=== PATIENT | female | born 1955 | race Caucasian/White ===

== ENCOUNTER 2020-07-31 10:26 | Emergency (ER) | payer MEDICARE, OTHER ==
[2020-07-31 10:32] VITALS: BMI 26.9
[2020-07-31] MEDS ORDERED: TETANUS AND DIPHTHERIA TOXOID 0.5 ML DISP.SYRIN IM ONE (10:58)
[2020-07-31] MEDS ORDERED: BACITRACIN 0.9 GM PACKET TP ONE (10:59)
[2020-07-31] MEDS ORDERED: DIPHTH,PERTUSS(ACELL),TET 0.5 ML DISP.SYRIN IM ONE ×2 (11:05→11:10)
[2020-07-31] MEDS ORDERED: BACITRACIN 0.9 GM PACKET ONE (11:10)
[2020-07-31] MEDS: SODIUM CHLORIDE 1,000 ML IV STA ×2 (11:17→11:46)
[2020-07-31] MEDS ORDERED: CEFAZOLIN 500 MG in DEXTROSE 5%-WATER - 50 ML IVPB ONE (11:44)
[2020-07-31] MEDS ORDERED: CEFAZOLIN 1 GM/D5W 1 GM/50 ML BAG ONE (11:48)
[2020-07-31 12:29] VITALS: BP 155/79; PULSE 77; TEMP 98.3
== END 2020-07-31 13:20 | disposition short-term general hospital (02) ==
LOC: JER 10:26
PROC: 3E03329 Introduction of Other Anti-infective into Peripheral Vein, Percutaneous Approach (ICD-10-PCS; principal; 2020-07-31)
PROC: 3E0234Z Introduction of Serum, Toxoid and Vaccine into Muscle, Percutaneous Approach (ICD-10-PCS; 2020-07-31)
PROC: 3E0337Z Introduction of Electrolytic and Water Balance Substance into Peripheral Vein, Percutaneous Approach (ICD-10-PCS; 2020-07-31)
DX: T23.201A Burn of second degree of right hand, unspecified site, initial encounter (principal); T23.202A Burn of second degree of left hand, unspecified site, initial encounter; T20.16XA Burn of first degree of forehead and cheek, initial encounter; T21.11XA Burn of first degree of chest wall, initial encounter
CPT/HCPCS: 90471; 90715; 96361; 96365; 99285-25